=== PATIENT | male | born 1930 ===

== ENCOUNTER 2018-06-23 16:53 | Emergency (ER) | payer MEDICARE ==
[2018-06-23 17:19] VITALS: BP 153/89; PULSE 88; RESP 18; TEMP 98.1; O2SAT 97
--- NOTE | 2018-06-23 17:55 | C.PDOC ---
History Of Present Illness 88 y/o male presents to the ED complaining of red itchy lesions to the right wrist/forearm area and left wrist, ongoing for a few weeks. He has taken courses of Keflex and Augmentin without relief. Patient also reports applying multiple creams and ointments to the affected areas without improvement. Rash is described as itchy, but not painful. Denies fever or chills. Time Seen by Provider: 06/23/18 17:41 Chief Complaint (Nursing): Abnormal Skin Integrity History Per: Patient History/Exam Limitations: no limitations Onset/Duration Of Symptoms: Days Current Symptoms Are (Timing): Still Present Location Of Injury: Right: Forearm, Left: Wrist Quality Of Symptoms: Itching Past Medical History Reviewed: Historical Data, Nursing Documentation, Vital Signs Vital Signs: Last Vital Signs Temp 98.1 F 06/23/18 17:14 Pulse 88 06/23/18 17:14 Resp 18 06/23/18 17:14 BP 153/89 H 06/23/18 17:14 Pulse Ox 97 06/23/18 17:54 - Medical History PMH: HTN Denies: Chronic Kidney Disease - [facility] Procedures INSERTION OF INFUSION DEV INTO SUP VENA CAVA, PERC APPROACH (08/26/16) Family History: States: Unknown Family Hx - Social History Hx Tobacco Use: No Hx Alcohol Use: No Hx Substance Use: No - Immunization History Hx Tetanus Toxoid Vaccination: No Hx Influenza Vaccination: Yes Hx Pneumococcal Vaccination: No Review Of Systems Except As Marked, All Systems Reviewed And Found Negative. Constitutional: Negative for: Fever, Chills Cardiovascular: Negative for: Chest Pain Respiratory: Negative for: Shortness of Breath Gastrointestinal: Negative for: Vomiting, Abdominal Pain Skin: Positive for: Rash (lesions to bilateral wrists) Neurological: Negative for: Weakness, Numbness, Incoordination, Headache Physical Exam - Physical Exam Appears: Non-toxic, No Acute Distress Skin: Warm, Dry, Other (Erythematous blanching scaly, mildly pruritic, lesions; 20x6 area to distal aspect of right forearm, and 5x5 cm area to left wrist) Head: Atraumatic, Normacephalic Eye(s): bilateral: Normal Inspection Extremity: Normal ROM, No Tenderness, Capillary Refill (less than 2 sec), No Swelling Pulses: Left Radial: Normal, Right Radial: Normal Neurological/Psych: Oriented x3, Normal Speech ED Course And Treatment O2 Sat by Pulse Oximetry: 97 (RA) Pulse Ox Interpretation: Normal Medical Decision Making Medical Decision Making: Impression: area of skin irritation of the R wrist/forearm non-tender blanching already failed 2 rounds of abx pt applying multiple skin creams and lotions suspect contact dermatitis. d/c all other lotions apply only Benadryl cream PRN Disposition Doctor Will See Patient In The: Office Counseled Patient/Family Regarding: Studies Performed, Diagnosis - Disposition [facility]Outside] [facility] [Outside] [facility] [employer] [Outside] Disposition: HOME/ ROUTINE Disposition Time: 17:54 Condition: GOOD Additional Instructions: STOP all the different lotions you are applying to your skin Apply ONLY the benadryl cream to the affected areas of your forearm 2-3x/day follow-up in our outpatient Clinic in about a week as needed. Prescriptions: DiphenhydrAMINE 1% [Benadryl Maximum Strength 1%] 1 tube TP TID PRN #1 tube PRN Reason: contact dermatitis Instructions: Contact Dermatitis (DC) Forms: [facility] (Swiss) - Clinical Impression Clinical Impression: Skin lesion, Urticaria - Scribe Statement The provider has reviewed the documentation as recorded by the Scribe (Sharri Cheek) Provider Attestation: All medical record entries made by the Scribe were at my direction and personally dictated by me. I have reviewed the chart and agree that the record accurately reflects my personal performance of the history, physical exam, medical decision making, and the department course for this patient. I have also personally directed, reviewed, and agree with the discharge instructions and disposition.
== END 2018-06-23 18:11 | disposition home or self-care (01) ==
LOC: C.ER 16:53
DX: L98.8 Other specified disorders of the skin and subcutaneous tissue (principal); L50.9 Urticaria, unspecified